=== PATIENT | female | born 1960 | race Caucasian/White ===

== ENCOUNTER 2017-02-22 07:19 | Day surgery (SDC) | payer OTHER ==
[~2017-02-22] VITALS: Ht 154.9 cm; Wt 66.2 kg
[2017-02-22] MEDS ORDERED: GABAPENTIN (08:14)
[2017-02-22] MEDS ORDERED: MELOXICAM (08:14)
[2017-02-22] MEDS ORDERED: LIDOCAINE 4% SOLUTION 50 ML BTL ONE (08:15)
[2017-02-22 08:19] VITALS: BP 112/60; PULSE 53; RESP 12
--- NOTE | 2017-02-22 08:52 | OPPN ---
Date/Time of Note Date/Time of Note DATE: 02/22/17 TIME: 08:49 Proc Note GI Procedure Date 02/22/17 Indication: screening/surveillance, diagnostic Pre-procedure Diagnosis abd pain wt loss r/o pud neoplasm Post-procedure Diagnosis gerd gastritis diverticuli hemorrhoids Procedure Performed: Endoscopy, Colonoscopy Surgeon see signature line Chronic Manager none Anesthesia Type: moderate sedation Tourniquet Time none EBL none Transfusion required none Biopsy 1: gastric esophageal bx Grafts/Implants none Tubes/Drains none Complication(s) none Disposition: other Procedure Description egd showed gerd and gastritis colonoscopy showed occ diverticuli mini hemorrhids MARY PALM MD Feb 22, 2017 08:52
[2017-02-22] MEDS ORDERED: MIDAZOLAM 1 MG/ML 2 ML INJ ONE ×3 (08:58→10:22)
[2017-02-22] MEDS ORDERED: FENTAnyl 50 MCG/ML VIAL ONE (08:59)
--- NOTE | 2017-02-23 04:52 | GILP ---
DATE OF PROCEDURE: 02/22/2017 PROCEDURE: Esophagogastroduodenoscopy. PREOPERATIVE DIAGNOSIS: Patient presenting with history of chronic abdominal discomfort, heartburn, passing melenic stool, rule out peptic ulcer disease, esophagitis. POSTOPERATIVE DIAGNOSES: 1. Mild reflux esophagitis, [place] classification A. Biopsies were done. 2. Mild gastritis of the fundus. Biopsies were done to rule out Helicobacter pylori infection. DESCRIPTION OF PROCEDURE: After informed written consent was obtained, the patient was asked to lie on the left lateral side. Intravenous anesthesia was given which included 3 mg Versed and 50 mcg o f fentanyl. When the patient became somnolent, the Olympus video upper endoscope was introduced int o the oropharynx, then into the esophagus. Esophagus showed evidence of a one area of elongated lexii thema above the GE junction indicating mild reflux esophagitis. Biopsy was done to rule out Simpson 's esophagus. Scope at this time was advanced into the stomach. Stomach showed evidence of several areas of erythema with no ulcers, no neoplasm. Biopsy was done from the antrum, the lesser curvatu re and the fundus to rule out H. pylori infection. The duodenum appeared perfectly normal up to the end of the third portion. Scope at this time was withdrawn and no additional abnormalities detecte d and the procedure was terminated. PLAN: Recommend proton pump inhibitor therapy, omeprazole 40 mg a day for 2 months. Dictated By: MARY KEEN/DAVE Conf#: [id number] DID#: [id number]
--- NOTE | 2017-02-23 04:55 | GILP ---
DATE OF PROCEDURE: 02/22/2017 PROCEDURE: Colonoscopy. PREOPERATIVE DIAGNOSIS: Patient presenting with history of abdominal pain and weight loss. Patient never had a colonoscopy. Rule out colorectal neoplasm, colitis, etc. POSTOPERATIVE DIAGNOSES: 1. Occasional diverticula noted in the descending colon. 2. Minimal internal and minimal external hemorrhoids were noted. DESCRIPTION OF PROCEDURE: After informed written consent was obtained, the patient was asked to lie on the left lateral side. A total of 3 mg Versed and 75 mcg of fentanyl was given as intravenous a nesthesia. When the patient became somnolent, Olympus video colonoscope was introduced into the rectum and scop e was advanced all the way to the cecum. Entire colon appeared perfectly normal. On the way out, n o additional abnormalities detected, careful evaluation was carried out. Minimal internal hemorrhoi ds and minimal external hemorrhoids noted, occasional diverticula noted in the descending colon and at this time, procedure was terminated. PLAN: Recommend further workup. Dictated By: MARY PALM MD NC/NTS Conf#: [id number] DID#: [id number] CC: Roseanna SALAZAR;*EndCC*
== END 2017-02-22 11:24 | disposition home or self-care (01) ==
LOC: GIL 07:19
PROVIDERS: ATTEND Internal Medicine Gastroenterology
DX: K92.1 Melena (principal); K29.50 Unspecified chronic gastritis without bleeding; K44.9 Diaphragmatic hernia without obstruction or gangrene; K21.0 Gastro-esophageal reflux disease with esophagitis; K57.90 Diverticulosis of intestine, part unspecified, without perforation or abscess without bleeding; K64.8 Other hemorrhoids; K64.4 Residual hemorrhoidal skin tags
CPT/HCPCS: 43239; 45378; 88305; 88312; 88313; J2250; J3010; Z7610